=== PATIENT | male | born 1960 | race African-American/Black ===

== ENCOUNTER 2020-05-07 20:44 | Emergency (ER) | payer MEDICARE ==
[~2020-05-07] VITALS: Ht 182.9 cm; Wt 72.6 kg
[2020-05-07 21:01] VITALS: BP 135/72
[2020-05-07] MEDS ORDERED: Tetanus/Diptheria/Pertussis IM ONE (21:30)
[2020-05-07] MEDS ORDERED: Clindamycin 150mg cap ORAL ONE (21:30)
[2020-05-07] MEDS ORDERED: HYDROcodone/Acetamin 5/325 tab ORAL ONE (21:30)
--- NOTE | 2020-05-07 21:38 | Emergency Room Report ---
History of Present Illness General Chief Complaint: Laceration Source: Patient Present Illness HPI This a 59-year-old male who is right-hand dominant. His presents with chief complaint of laceration to his left hand. He said he was gardening around 2 PM today. He stabbed his left hand with a garden shear. It was bleeding profusely. He wrapped it up and did not go to the hospital until now. He has been drinking tonight. He complained of hand pain at his 9 out of 10. Worse with movement. Better with rest. The dressing is soaked through with blood. He denies any other injury. Worse with movement. Better with rest. Allergies: Coded Allergies: No Known Allergies (Unverified , 05/07/20) COVID-19 Screening Contact w/high risk pt: No Experienced COVID-19 symptoms?: No COVID-19 Testing performed SEARCH COORDINATOR: No Patient History Past Medical History: see triage record, old chart reviewed Past Surgical History: none Pertinent Family History: none Social History: Reports: alcohol use Immunizations: other Reviewed Nursing Documentation: PMH: Agreed; PSxH: Agreed Nursing Documentation-PMH Hx Cardiac Problems: Yes Hx Hypertension: Yes Hx Pacemaker: No Hx Asthma: Yes Hx COPD: No Hx Diabetes: No Hx Cancer: No Hx Gastrointestinal Problems: Yes Hx Dialysis: No History Of Psychiatric Problem: No Hx Neurological Problems: No Hx Cerebrovascular Accident: No Hx Seizures: No Review of Systems Eye: Denies: eye pain, blurred vision ENT: Denies: ear pain, nose congestion, throat swelling Respiratory: Denies: cough, shortness of breath Cardiovascular: Denies: chest pain, palpitations Gastrointestinal: Denies: abdominal pain, diarrhea, nausea, vomiting Musculoskeletal: Denies: back pain, joint pain Skin: Denies: rash Neurological: Denies: headache, numbness Endocrine: Denies: increased thirst, increased urine Hematologic/Lymphatic: Denies: easy bruising All Other Systems: negative except mentioned in HPI Physical Exam Vital Signs Date Time Temp Pulse Resp B/P (MAP) Pulse Ox O2 Delivery O2 Flow Rate FiO2 05/07/20 20:55 98.2 78 16 135/72 (93) 100 Room Air Vitals normal Sp02 EP Interpretation: reviewed, normal General Appearance: well appearing, no apparent distress, alert, other Head: normocephalic, atraumatic Eyes: bilateral eye PERRL, bilateral eye EOMI ENT: hearing grossly normal, normal pharynx Neck: full range of motion, supple, no meningismus Respiratory: chest non-tender, lungs clear, normal breath sounds Cardiovascular #1: regular rate, rhythm, no murmur Gastrointestinal: normal bowel sounds, non tender, no mass, no organomegaly, no bruit, non-distended Musculoskeletal: back normal, normal range of motion, gait/station normal, other - Left hand: Over the hyperthenar eminence, there is a 3 cm laceration. Is gaping with a large clot. He has full range of motion of the thumb and index finger. Tender with movement. Sensation normal. Psychiatric: mood/affect normal Procedures Laceration/Wound Repair Laceration/Wound Repair : Consent: Verbal Wound Location: upper extremity - left hand Wound's Depth, Shape: into muscle, irregular, flap, contused tissue Wound Length (cm): 4 Wound Explored: clean Irrigated w/ Saline (ccs): 2000 Betadine Prep?: Yes Anesthesia: 1% Lidocaine Volume Anesthetic (ccs): 7 Wound Debrided: None Wound Repaired With: sutures Suture Size/Type: 4:0, proline Number of Sutures: 5 Patient Tolerated: Well Complications: None Medical Decision Making Diagnostic Impression: Primary Impression: Laceration Additional Impression: Alcohol abuse ER Course Patient presents with head laceration. I see no foreign body or tendon laceration. High risk for infection. Patient received tetanus and antibiotics here. On the hand x-ray there appeared to be air/gas by the second metacarpal bone. This is probably from my irrigation. I see no evidence of septic joint o r deep infection. Other X-Ray Diagnostic Results Other X-Ray Diagnostic Results : X-Ray ordered: Right hand x-rays # of Views/Limited Vs Complete: 3 View Indication: Pain EP Interpretation: Yes Interpretation: no dislocation, no fractures, other - Soft tissue swelling. Air/gas by the second metacarpal bone. Impression: Other - soft tissue swelling Electronically Signed by: Juan Coles MD Last Vital Signs Date Time Temp Pulse Resp B/P (MAP) Pulse Ox O2 Delivery O2 Flow Rate FiO2 05/07/20 21:01 98.2 16 135/72 100 Room Air 05/07/20 20:55 78 Status: improved Disposition: HOME, SELF-CARE Condition: Stable Scripts Hydrocodone/Acetaminophen 5-325* (HYDROCODONE/ACETAMINOPHEN 5-325*) 1 Each Tablet 1 TAB ORAL Q6H PRN for For Pain, #10 TAB 0 Refills Prov: Juan Coles MD 05/07/20 Clindamycin Hcl (CLINDAMYCIN HCL) 300 Mg Capsule 300 MG ORAL THREE TIMES A DAY, #21 CAP Prov: Juan Coles MD 05/07/20 Referrals: NOT CHOSEN IPA/MD,REFERRING (PCP) Patient Instructions: Laceration Care, Adult Additional Instructions: Keep wound clean. Follow-up with your doctor in 7 to 10 days for suture removal. Return if symptoms worsen. Juan Coles MD May 07, 2020 21:38
[2020-05-07] MEDS ORDERED: HYDROCODON-ACE1 EA15 ORAL (21:45)
[2020-05-07] MEDS ORDERED: CLINDAMYCIN HC300 MG ORAL (21:45)
--- NOTE | 2020-05-07 21:58 | Diagnostic Imaging Report ---
EXAM: XR Left Hand Complete, 3 or More Views CLINICAL HISTORY: TRAUMA TECHNIQUE: Frontal, lateral and oblique views of the left hand. COMPARISON: No relevant prior studies available. FINDINGS: Bones/joints: Unremarkable. Degenerative changes, most prominent in the proximal and phalangeal joint of the little finger as well as radial carpal joint. No acute fracture. Chronic appearing irregularity of the radial styloid, may be sequela of prior trauma. No dislocation. Soft tissues: Unremarkable. No radiopaque foreign body. IMPRESSION: No acute osseous abnormality.
== END 2020-05-07 21:54 | disposition home or self-care (01) ==
LOC: EMR 21:12
DX: S61.412A Laceration without foreign body of left hand, initial encounter (principal); F10.10 Alcohol abuse, uncomplicated; Z23 Encounter for immunization; W27.1XXA Contact with garden tool, initial encounter; Y93.H2 Activity, gardening and landscaping; Y92.9 Unspecified place or not applicable; I10 Essential (primary) hypertension
CPT/HCPCS: 90471; 90715; 99283